=== PATIENT | female | born 1975 | race Caucasian/White ===

== ENCOUNTER 2019-01-13 20:05 | Emergency (ER) | payer BC ==
[~2019-01-13] VITALS: Ht 167.6 cm; Wt 80.7 kg
[2019-01-13] MEDS ORDERED: ZOLOFT20 MG/1 ML (20:43)
[2019-01-13] MEDS ORDERED: QUETIAPINE FUMA25 MG (20:43)
== END 2019-01-13 21:43 | disposition home or self-care (01) ==
LOC: ER 20:05 → EDBD 20:22 → ER 20:22
DX: S80.861A Insect bite (nonvenomous), right lower leg, initial encounter (principal); W57.XXXA Bitten or stung by nonvenomous insect and other nonvenomous arthropods, initial encounter; Y93.01 Activity, walking, marching and hiking; Y92.89 Other specified places as the place of occurrence of the external cause; Y99.8 Other external cause status